=== PATIENT | female | born 1955 | race Caucasian/White ===

== ENCOUNTER → 2017-03-29 | Outpatient (CLI) | payer BC ==
--- NOTE | ~2017-03-29 | MY29 ---
[facility] A Service of [facility] RADIOLOGY TEXT RESULTS PATIENT: DENNIS PERES LOCATION: [facility] : 57 UNIT #: [id number] AGE: [address]: Marvin Jesus MD SEX: F ORDER DR: [id number] [facility]. [place], [place] [address] [id number] O MR#: [id number] Acc #: [id number] NAME: DENNIS PERES : 1955 SEX: F STUDY DATE/TIME: 03/29/2017 14:48 UNIT: [facility] ROOM: STUDY DESCRIPTION: [facility] SCREENING W/ CAD BILAT Attending Physician: Marvin Jesus M.D. Referring Physician: Marvin Jesus M.D. Ordering Physician: Marvin Jesus M.D. Primary Care Physician: Marvin Jesus M.D. MEDICAL IMAGING REPORT This report is preliminary unless electronic signature is present EXAM Bilateral Digital Screening Mammogram with CAD INDICATION Breast cancer screening. 61-year-old asymptomatic female. No personal or family history of breast cancer. COMPARISON February 02, 2016 January 21, 2015 October 15, 2013 September 16, 2012 August 03, 2010 July 29, 2009 August 20, 2008 July 27, 2008 August 24, 2006 and July 10, 2005 FINDINGS There are scattered fibroglandular tissues. No suspicious findings are present. IMPRESSION No mammographic evidence of malignancy. Annual screening mammography and clinical breast exam are recommended. A result letter will be sent to the patient. Patients over the age of 40 are entered into a reminder system with target due date for the next mammogram. BIRADS: 1 Negative Dictated by... Jacques Perez M.D. THIS IS AN ELECTRONICALLY VERIFIED REPORT [facility] A Service of [facility] RADIOLOGY TEXT RESULTS PATIENT: DENNIS PERES LOCATION: [facility] : 57 UNIT #: [id number] AGE: [address]: Marvin Jesus MD SEX: F ORDER DR: Jacques Perez M.D. at 04/01/2017 10:27 PM BENJI/chuy TD: 03/29/2017 22:15 JOB #: [id number] MEDICAL IMAGING REPORT Page 1 of 1 COPY
== END | disposition home or self-care (01) ==
LOC: CWCC 02-28 12:15
DX: Z12.31 Encounter for screening mammogram for malignant neoplasm of breast (principal)
CPT/HCPCS: G0202